=== PATIENT | male | born 1975 | race Caucasian/White ===

== ENCOUNTER 2017-06-11 07:09 | Emergency (ER) | payer SELFPAY ==
[~2017-06-11] VITALS: Ht 185.4 cm; Wt 71.4 kg
[2017-06-11 07:11] VITALS: BP 121/72; PULSE 69; RESP 16; TEMP 98.2; O2SAT 97
--- NOTE | 2017-06-11 07:36 | PD ---
HPI Chief Complaint: Bite or Sting Time Seen by Provider: 07:26 Travel History International Travel<30 days: No Contact w/Intl Traveler<30days: No Traveled to known affect area: No History of Present Illness HPI 42-year-old male patient presents to the ER today because he states that he had noticed that there was a tick on his left clavicle yesterday and thinks it may have been on for about 24 hours. He states that since then he has been feeling more fatigued, having low-grade fevers, nausea, abdominal cramping pains. He denies any diarrhea, chest pains, shortness of breath, or any other symptoms. He states that the tick that he removed looked like a speckled tick. He denies any sick contacts. Modifying Factors: None Associated Signs & Symptoms: Tick bite, low-grade fevers, fatigue, nausea, abdominal cramping Risk Factors: None PFSH Past Medical History Medical History: Denies Significant Hx Influenza Vaccination: No Past Surgical History Other Surgery: Yes (FACIAL RECONSTRUCTION) Social History Alcohol Use: No Tobacco Use: Yes (1/2 PPD) Substance Use: No Allergies-Medications (Allergen,Severity, Reaction): Coded Allergies: No Known Allergies (Verified Allergy, Unknown, 06/11/17) Review of Systems Except as stated in HPI: all other systems reviewed are Neg Physical Exam Narrative GENERAL: [Well-developed young white male patient currently in mild distress. Awake and oriented 3. SKIN: Focused skin assessment warm/dry. There is a oval 1 cm area of erythema at the left clavicle where there is an insect bites. No underlying fluctuance or tenderness. HEAD: Atraumatic. Normocephalic. EYES: Pupils equal and round. No scleral icterus. No injection or drainage. ENT: No nasal bleeding or discharge. Mucous membranes pink and moist. NECK: Trachea midline. No JVD. CARDIOVASCULAR: Regular rate and rhythm. No murmur appreciated. RESPIRATORY: No accessory muscle use. Clear to auscultation. Breath sounds equal bilaterally. GASTROINTESTINAL: Abdomen soft, non-tender, nondistended. Hepatic and splenic margins not palpable. MUSCULOSKELETAL: No obvious deformities. No clubbing. No cyanosis. No edema. NEUROLOGICAL: Awake and alert. No obvious cranial nerve deficits. Motor grossly within normal limits. Normal speech. PSYCHIATRIC: Appropriate mood and affect; insight and judgment normal. Data Data Last Documented VS Vital Signs Date Time Temp Pulse Resp B/P (MAP) Pulse Ox O2 Delivery O2 Flow Rate FiO2 06/11/17 07:11 98.2 69 16 121/72 (88) 97 Room Air Orders Orders Complete Blood Count With Diff (06/11/17 07:26) Comprehensive Metabolic Panel (06/11/17 07:26) Lactic Acid Sepsis Protocol (06/11/17 07:) Blood Culture (06/11/17:) Blood Glucose (06/11/17:) Ecg Monitoring (06/11/17:) Iv Access Insert/Monitor (06/11/17:) Oximetry (06/11/17:) Oxygen Administration (06/11/17:) Electrocardiogram (06/11/17 07:28) Labs Laboratory Tests Test 06/11/17 07:30 White Blood Count 4.4 TH/MM3 Red Blood Count 4.42 MIL/MM3 Hemoglobin 13.4 GM/DL Hematocrit 38.9 % Mean Corpuscular Volume 88.1 FL Mean Corpuscular Hemoglobin 30.2 PG Mean Corpuscular Hemoglobin Concent 34.3 % Red Cell Distribution Width 11.8 % Platelet Count 206 TH/MM3 Mean Platelet Volume 6.6 FL Neutrophils (%) (Auto) 65.3 % Lymphocytes (%) (Auto) 22.6 % Monocytes (%) (Auto) 10.4 % Eosinophils (%) (Auto) 1.1 % Basophils (%) (Auto) 0.6 % Neutrophils # (Auto) 2.9 TH/MM3 Lymphocytes # (Auto) 1.0 TH/MM3 Monocytes # (Auto) 0.5 TH/MM3 Eosinophils # (Auto) 0.0 TH/MM3 Basophils # (Auto) 0.0 TH/MM3 CBC Comment DIFF FINAL Differential Comment Blood Urea Nitrogen 14 MG/DL Creatinine 0.90 MG/DL Random Glucose 101 MG/DL Total Protein 7.3 GM/DL Albumin 3.8 GM/DL Calcium Level 8.8 MG/DL Alkaline Phosphatase 62 U/L Aspartate Amino Transf (AST/SGOT) 23 U/L Alanine Aminotransferase (ALT/SGPT) 21 U/L Total Bilirubin 0.8 MG/DL Sodium Level 135 MEQ/L Potassium Level 3.9 MEQ/L Chloride Level 105 MEQ/L Carbon Dioxide Level 24.7 MEQ/L Anion Gap 5 MEQ/L Estimat Glomerular Filtration Rate 93 ML/MIN Lactic Acid Level 0.6 mmol/L MDM Medical Decision Making Medical Screen Exam Complete: Yes Emergency Medical Condition: Yes Medical Record Reviewed: Yes Interpretation(s) Laboratory Tests Test 06/11/17 07:30 Red Blood Count 4.42 MIL/MM3 (4.50-5.90) Hematocrit 38.9 % (39.0-51.0) Mean Platelet Volume 6.6 FL (7.0-11.0) Monocytes (%) (Auto) 10.4 % (0.0-8.0) Sodium Level 135 MEQ/L (136-145) Differential Diagnosis Tickborne illnesses such as Lyme disease versus viral syndrome versus staph infection/cellulitis versus sepsis Narrative Course Lab work did not show significant metabolic issues and lactate is fairly unremarkable. His white count was unremarkable. Vital signs are stable in the ER. At this point, considering the history, my plan would be to treat him with antibiotics as precaution and have him follow-up with primary care physician. Return for any worsening in symptoms as needed. The plan has been discussed with him and he states understanding. Diagnosis Primary Impression: Tick bite Med/Other Pt SpecificInfo: Prescription(s) given Scripts Doxycycline Hyclate (Doxycycline Hyclate) 100 Mg Cap 100 MG PO BID for Infection, #28 CAP 0 Refills Prov: Michelle Dominguez MD 06/11/17 Disposition: 01 DISCHARGE HOME Condition: Stable Michelle Dominguez MD Jun 11, 2017 07:36
[2017-06-11 08:00] LABS: AUTOMATED NEUTROPHIL # 2.9 TH/MM3 (1.8-7.7); BASOPHIL % 0.6 % (0.0-2.0); EOSINOPHIL % 1.1 % (0.0-4.0); HEMATOCRIT 38.9 % (39.0-51.0); HEMO FLAGS DIFF FINAL; LYMPH % 22.6 % (9.0-44.0); MEAN CELL VOLUME 88.1 FL (80.0-100.0); MEAN CORPUSCULAR HEMOGLOBIN 30.2 PG (27.0-34.0); MEAN CORPUSCULAR HGB CONC 34.3 % (32.0-36.0); MONO % 10.4 % (0.0-8.0); NEUT % 65.3 % (16.0-70.0); PLATELET COUNT 206 TH/MM3 (150-450); RED BLOOD COUNT 4.42 MIL/MM3 (4.50-5.90); RED CELL DISTRIBUTION WIDTH 11.8 % (11.6-17.2); WHITE BLOOD COUNT 4.4 TH/MM3 (4.0-11.0)
[2017-06-11 08:09] LABS: CHLORIDE 105 MEQ/L (98-107); POTASSIUM 3.9 MEQ/L (3.5-5.1); SODIUM (NA) 135 MEQ/L (136-145)
[2017-06-11 08:13] LABS: ANION GAP 5 MEQ/L (5-15); BICARBONATE 24.7 MEQ/L (21.0-32.0)
[2017-06-11 08:14] LABS: BLOOD UREA NITROGEN 14 MG/DL (7-18)
[2017-06-11 08:16] LABS: ALT (GPT) 21 U/L (12-78)
[2017-06-11 08:17] LABS: AST (GOT) 23 U/L (15-37); GLOMERULAR FILTRATION RATE 93 ML/MIN (>89)
[2017-06-11 08:18] LABS: TOTAL BILIRUBIN ADULT 0.8 MG/DL (0.2-1.0)
[2017-06-11 08:19] LABS: ALKALINE PHOSPHATASE 62 U/L (45-117)
[2017-06-11] MEDS ORDERED: DOXY100C PO (08:27)
--- NOTE | 2017-06-11 13:46 | EKG ---
Date Performed: 06/11/2017 Time Performed: 07:38:58 PTAGE: 42 years EKG: Sinus rhythm POSSIBLE LEFT ATRIAL ENLARGEMENT POSSIBLE RIGHT VENTRICULAR CONDUCTION DELAY BORDERLINE ECG INTERPRE TATION BASED ON A DEFAULT AGE OF 42 YEARS Nonspecific inferior T-wave inversion NO PREVIOUS TRACING DOCTOR: Melvi Ryan Interpretating Date/Time 06/11/2017 13:41:36
== END 2017-06-11 08:39 | disposition home or self-care (01) ==
LOC: PHED 07:09
DX: S20.362A Insect bite (nonvenomous) of left front wall of thorax, initial encounter (principal); R10.9 Unspecified abdominal pain; R50.9 Fever, unspecified; R11.0 Nausea; R53.83 Other fatigue; W57.XXXA Bitten or stung by nonvenomous insect and other nonvenomous arthropods, initial encounter
CPT/HCPCS: 80053; 83605; 85025; 87040; 93005; 99283